=== PATIENT | female | born 1995 | race Caucasian/White ===

== ENCOUNTER 2021-07-24 22:53 | Emergency (ER) | payer OTHER ==
[~2021-07-24] VITALS: Ht 178 cm; Wt 91.0 kg
[2021-07-24] MEDS ORDERED: TETANUS,DIPTH,PERTUSS P/F (BOOSTRIX) 0.5 ML VIAL IM ONE (23:15)
[2021-07-24 23:36] LABS: BILIRUBIN,URINE NEGATIVE (NEGATIVE); CLARITY,URINE CLEAR; COLOR,URINE YELLOW; GLUCOSE, URINE (UA) NEGATIVE (NEGATIVE); KETONES,URINE NEGATIVE (NEGATIVE); LEUKOCYTE ESTERASE ,URINE TRACE (NEGATIVE); NITRITE,URINE NEGATIVE (NEGATIVE); PROTEIN,URINE NEGATIVE (NEGATIVE)
[2021-07-24 23:47] LABS: BACTERIA,URINE TRACE /HPF; RBC,URINE 0-2 /HPF; SQUAMOUS EPITHELIAL CELL,UR 0-2 /HPF; WBC,URINE 0-2 /HPF
[2021-07-24 23:54] LABS: BASOPHILS # (AUTO) 0.1 10^3/uL (0.0-0.1); BASOPHILS % (AUTO) 1 % (0-10); EOSINOPHILS # (AUTO) 0.1 10^3/uL (0.0-0.3); EOSINOPHILS % (AUTO) 2 % (0-10); HEMATOCRIT 39 % (35-52); HEMOGLOBIN 11.8 g/dL (11.5-16.0); LYMPHOCYTES % (AUTO) 30 % (12-44); MEAN CORPUSCULAR HEMOGLOBIN 25 pg (25-34); MEAN CORPUSCULAR HGB CONC 30 g/dL (32-36); MEAN CORPUSCULAR VOLUME 83 fL (80-99); MEAN PLATELET VOLUME 10.7 fL (9.0-12.2); MONOCYTES # (AUTO) 0.4 10^3/uL (0.0-1.0); MONOCYTES % (AUTO) 7 % (0-12); NEUTROPHILS # (AUTO) 4.1 10^3/uL (1.8-7.8); NEUTROPHILS % (AUTO) 61 % (42-75); PLATELET COUNT 246 10^3/uL (130-400); WHITE BLOOD COUNT 6.6 10^3/uL (4.3-11.0)
[2021-07-24 23:55] LABS: BENZODIAZEPINES SCREEN URINE NEGATIVE (NEGATIVE); COCAINE SCREEN URINE NEGATIVE (NEGATIVE)
[2021-07-24 23:56] LABS: AMPHETAMINE SCREEN, URINE POSITIVE (NEGATIVE); BARBITURATE SCREEN URINE NEGATIVE (NEGATIVE); CANNABINOID SCREEN, URINE POSITIVE (NEGATIVE); METHADONE STAT NEGATIVE (NEGATIVE); METHAMPHETAMINE SCREEN URINE S NEGATIVE (NEGATIVE); OPIATE SCREEN URINE NEGATIVE (NEGATIVE); OXYCODONE STAT NEGATIVE (NEGATIVE); PROPOXYPHENE STAT NEGATIVE (NEGATIVE); TRICYCLIC ANTIDEPRESSANTS SCRE NEGATIVE (NEGATIVE)
[2021-07-25 00:09] LABS: CHLORIDE 101 MMOL/L (98-107); SODIUM 137 MMOL/L (135-145)
[2021-07-25 00:10] LABS: ALBUMIN 4.6 GM/DL (3.2-4.5)
[2021-07-25 00:11] LABS: CALCIUM 9.2 MG/DL (8.5-10.1)
[2021-07-25 00:12] LABS: GLUCOSE 88 MG/DL (70-105); TOTAL PROTEIN 7.8 GM/DL (6.4-8.2)
[2021-07-25 00:13] LABS: CARBON DIOXIDE 20 MMOL/L (21-32)
[2021-07-25 00:14] LABS: BILIRUBIN,TOTAL 0.6 MG/DL (0.1-1.0)
[2021-07-25 00:16] LABS: ALKALINE PHOSPHATASE 100 U/L (40-136); CREATININE SERUM 0.87 MG/DL (0.60-1.30); GFR ESTIMATED 95
[2021-07-25 00:17] LABS: BUN/CREATININE RATIO 6
[2021-07-25 00:19] LABS: ALANINE AMINOTRANSFERASE 37 U/L (0-55); SALICYLATE < 5.0 MG/DL (5.0-20.0)
[2021-07-25 00:24] LABS: ACETAMINOPHEN < 10 UG/ML (10-30)
[2021-07-25] MEDS ORDERED: LIDOCAINE 1% INJ 20 ML VIAL INJ ONE (00:30)
[2021-07-25 00:39] LABS: TSH (THYROID ANALYZER) 0.88 UIU/ML (0.35-4.94)
--- NOTE | 2021-07-25 00:54 | ED Psychosocial ---
General Chief Complaint: Psych/Social Disorder Stated Complaint: LEFT ARM LAC Nursing Triage Note: PT AMB TO ED BY POV WITH C/O SELF-INFLICTED LAC TO L FA. 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 REPORTS SHE WAS ATTEMPTING TO HARM HERSELF. DENIES SI. REPORTS SHE HAS HAD INCREASED ANXIETY WITH September DUE TO HAVING A MISCARRIAGE LAST SEPTEMBER. APPROX 3 CM LAC NOTED TO L FA, BLEEDING CONTROLLED. Source: patient Exam Limitations: intoxication History of Present Illness Date Seen by Provider: Jul 24, 2021 Time Seen by Provider: 23:12 Initial Comments PT ARRIVES VIA POV FROM HOME--STATES HER BOYFRIEND BROUGHT HER C/O SELF INFLICTED LACERATION TO LEFT FOREARM--CUT IT WITH A STEAK KNIFE JUST PRIOR TO ARRIVAL STATES SHE "JUST THOUGHT ABOUT IT FOR ONE MINUTE BEFORE I DID IT" DENIES SUICIDAL INTENT STATES SHE HAS BEEN UPSET DUE TO THINKING ABOUT A MISCARRIAGE SHE HAD LAST SEPTEMBER 2020 AT 6 WEEKS GESTATION. DENIES HISTORY OF SELF HARM OR SUICIDAL IDEATIONS OR INPATIENT PSYCH ADMITS. HAS HISTORY OF DEPRESSION AND ANXIETY AND WAS SEEN AT [facility] LAST WEEK, AND STATES THEY LOWER HER DOSES OF LEXAPRO AND BUSPAR "BECAUSE I WASN'T TAKING THEM RIGHT" PT LATER ADMITS TO DRINKING 6-7 DRINKS TONIGHT. STATES SHE DRINKS DAILY SHE ALSO LATER ADMITS TO TAKING ADDERALL "SO I COULD CLEAN THE HOUSE" --MEDICATION IS NOT PRESCRIBED TO HER. PCP: [facility] Allergies and Home Medications Allergies Coded Allergies: No Known Drug Allergies (Unverified , 07/24/21) Patient Home Medication List Home Medication List Reviewed: Yes Review of Systems Constitutional: no symptoms reported EENTM: no symptoms reported Respiratory: no symptoms reported Cardiovascular: no symptoms reported Gastrointestinal: no symptoms reported Genitourinary: no symptoms reported Control/STD Prophylaxis: None Musculoskeletal: no symptoms reported Skin: see HPI Psychiatric/Neurological: See HPI Past Rulztup-Nfwaew-Ceyufn Hx Patient Social History Tobacco Use?: No Use of E-Cig and/or Vaping dev: No Substance use?: Yes Substance type: Amphetamines, Marijuana Additional substance use comme: "ADDERALL" --NOT PRESCRIBED TO HER Substance frequency: Daily Alcohol Use?: Yes Alcohol type: Beer Alcohol Frequency: Daily Immunizations Up To Date Influenza Vaccine Up-to-Date: No; Not Current First/Initial COVID19 Vaccinat: JUL 2020 Second COVID19 Vaccination Keaton: JUL 2020 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 oz. kg; 28.00 BMI Method: General Appearance: WD/WN, no apparent distress, other (REEKS OF ALCOHOL, SPEECH CLEAR, GAIT STEADY) HEENT: PERRL/EOMI, normal ENT inspection Neck: normal inspection Respiratory: normal breath sounds, no respiratory distress, no accessory muscle use Cardiovascular: regular rate, rhythm, no murmur Peripheral Pulses: 2+ Dorsalis Pedis (R), 2+ Left Dors-Pedis (L), 2+ Radial Pulses (R), 2+ Radial Pulses (L) Gastrointestinal: non tender, soft Extremities: normal range of motion, normal capillary refill, other (3 CM LACERATION TO ANTERIOR ASPECT OF LEFT FOREARM--NO BLEEDING. MOTOR/SENSORY/VASCULAR INTACT. ) Neurologic/Psychiatric: rural carrier associate II-XII nml as tested, no motor/sensory deficits, alert, oriented x 3, depressed affect Appearance/Memory: no memory impairment, disheveled Behavior/Eye Contact: cooperative, good eye contact, normal speech Thoughts/Hallucinations: no apparent hallucination Skin: normal color, warm/dry, other (LACERATION NOTED ABOVE.) Procedures/Interventions Other Wound Location LEFT FOREARM Wound Length (cm): 3 Wound's Depth, Shape: linear, sub Q Wound Explored: clean Betadine Prep?: No (BETASEPT) Anesthesia: 1% Lidocaine Staple Repair: Stapler 35W (#5) Sterile Dressing Applied?: Yes Progress/Results/Core Measures Results/Orders Lab Results My Orders Vital Signs/I&O Blood Pressure Mean: 106 Progress Progress Note : Progress Note PT CANNOT HAVE A MENTAL HEALTH SCREEN TONIGHT DUE TO ALCOHOL INTOXICATION. PT REPEATEDLY STATES SHE IS NOT SUICIDAL PT FEELS COMFORTABLE GOING HOME STATES SHE LIVES WITH HER BOYFRIEND AND DENIES ANY PROBLEMS WITH THE RELATIONSHIP. PT STATES SHE WILL FOLLOW UP WITH [facility] TOMORROW Initial ECG Impression Date: Jul 24, 2021 Initial ECG Impression Time: 23:34 Initial ECG Rate: 77 Initial ECG Rhythm: Normal Sinus Departure Impression Primary Impression: Intentional self-harm Additional Impressions: Laceration of left forearm Alcohol intoxication Illicit drug use Qvosaegvue-mwuqzlsyh-adxcgej (DPT) vaccination administered at current visit Disposition: 01 HOME, SELF-CARE Condition: Stable Departure-Patient Inst. Decision time for Depature: 01:07 Referrals: [facility] Patient Instructions: ALCOHOL AND SUBSTANCE ABUSE, Diphtheria and Tetanus Toxoids, and Acellular Pertussis Vaccine, Laceration Repair With [facility], SUICIDE CONTRACT, Self-Harm (DC) Add. Discharge Instructions: CLEAN WOUND TWICE A DAY WITH SOAP AND WATER ON A Q-TIP, APPLY FRESH DRESSING TWICE A DAY. OTHERWISE KEEP CLEAN AND DRY RETURN TO ER IN 10 DAYS FOR STAPLE REMOVAL NO ALCOHOL!! NO DRUGS!! FOLLOW UP WITH [facility] TOMORROW FOR FURTHER CARE RETURN TO ER IF SYMPTOMS WORSEN All discharge instructions reviewed with patient and/or family. Voiced understanding. WALDEMAR GRIDER DO Jul 25, 2021 00:54
[2021-07-25 01:20] VITALS: BP 121/65
== END 2021-07-25 01:20 | disposition home or self-care (01) ==
LOC: EDUNIT# 22:53 → ER 22:54
DX: R45.88 Nonsuicidal self-harm (principal); S51.812A Laceration without foreign body of left forearm, initial encounter; F41.9 Anxiety disorder, unspecified; F32.A Depression, unspecified; F10.129 Alcohol abuse with intoxication, unspecified; F15.90 Other stimulant use, unspecified, uncomplicated; Y90.7 Blood alcohol level of 200-239 mg/100 ml; Z23 Encounter for immunization; X78.1XXA Intentional self-harm by knife, initial encounter
CPT/HCPCS: 80053; 80306; 81000; 84443; 84703; 85025; 87636; 90471; 93005; 99283; G0480 ×3; 36415; 80320; 80329; 90715

== ENCOUNTER 2021-08-04 14:27 | Emergency (ER) | payer OTHER ==
[~2021-08-04] VITALS: Ht 180.3 cm; Wt 88.5 kg
[2021-08-04 15:04] VITALS: BP 125/75
== END 2021-08-04 15:09 | disposition home or self-care (01) ==
LOC: EDUNIT# 14:27 → ER 14:29
DX: Z48.02 Encounter for removal of sutures (principal)

== ENCOUNTER 2022-11-21 14:35 | Emergency (ER) | payer SELFPAY ==
[~2022-11-21] VITALS: Ht 180.3 cm; Wt 79.8 kg
[2022-11-21 14:45] VITALS: BP 148/84
--- NOTE | 2022-11-21 15:01 | ED Lower Extremity ---
General Chief Complaint: Lower Extremity Stated Complaint: LEFT KNEE PAIN Nursing Triage Note: pt ambulatory to room with a limp. states she woke up "a week and a half ago and could not walk." states he left knee is sore and hurts to straighten it. pt states she was seen at [facility] before here and they sent her here to be seen Source: patient Exam Limitations: no limitations History of Present Illness Date Seen by Provider: November 21, 2022 Time Seen by Provider: 14:52 Initial Comments 27-year-old female presents the ED with complaints of left knee pain for the last week and a half. She states that she first started having pain in her sleep. She states that she sleeps with three 50 pound dogs, states it is possible that they injured her while she was sleeping. Denies any other known injury. She reports difficulty with completely straightening her knee. Reports pain with straightening her knee and with walking. She reports that she was seen at the [facility] clinic, told to come here for concern of DVT. Past medical history includes depression and anxiety. Allergies and Home Medications Allergies Coded Allergies: No Known Drug Allergies (Unverified , 07/24/21) Patient Home Medication List Home Medication List Reviewed: Yes Review of Systems Constitutional: no symptoms reported Musculoskeletal: joint pain Past Kihtdra-Cdghkb-Heijta Hx Patient Social History Tobacco Use?: No Use of E-Cig and/or Vaping dev: Yes E-Cig or Vaping type used: Nicotine Use of E-Cig and/or Vaping Dixon: Current Everyday User Substance use?: Yes Substance type: Marijuana Substance frequency: Daily Alcohol Use?: No Immunizations Up To Date Influenza Vaccine Up-to-Date: Yes; Up-to-Date First/Initial COVID19 Vaccinat: JUL 2020 Second COVID19 Vaccination Keaton: JUL 2020 Past Medical History Surgery/Hospitalization HX: DEPRESSION Surgeries: No Respiratory: No Cardiac: No Neurological: No Reproductive Disorders: No Genitourinary: No Gastrointestinal: No Musculoskeletal: No Endocrine: No HEENT: No Cancer: No Psychosocial: Yes Anxiety, Depression Integumentary: No Blood Disorders: No Physical Exam Vital Signs Vital Signs - First Documented 11/21/22 14:45 Temp 36.4 Pulse 81 Resp 20 B/P (MAP) 148/84 (105) Pulse Ox 99 Capillary Refill : Height, Weight, BMI Height: '" Weight: lbs. oz. kg; 24.00 BMI Method:Actual General Appearance: WD/WN, no apparent distress Neck: supple, normal inspection Cardiovascular: regular rate, rhythm Respiratory: lungs clear, normal breath sounds, no respiratory distress, no accessory muscle use Knees: left knee non-tender, left knee normal inspection, left knee no evidence of injury, left knee pain, left knee other (Very slight decreased range of motion, can't quite get knee completely straight, no tenderness to palpation, no erythema, warmth, swelling) Neurologic/Psychiatric: alert, normal mood/affect Skin: normal color, warm/dry Progress/Results/Core Measures Results/Orders Lab Results Laboratory Tests Test 11/21/22 15:13 Range/Units White Blood Count 6.9 4.3-11.0 10^3/uL Red Blood Count 4.53 3.80-5.11 10^6/uL Hemoglobin 12.6 11.5-16.0 g/dL Hematocrit 39 35-52 % Mean Corpuscular Volume 86 80-99 fL Mean Corpuscular Hemoglobin 28 25-34 pg Mean Corpuscular Hemoglobin Concent 32 32-36 g/dL Red Cell Distribution Width 13.8 10.0-14.5 % Platelet Count 226 130-400 10^3/uL Mean Platelet Volume 11.8 9.0-12.2 fL Immature Granulocyte % (Auto) 0 % Neutrophils (%) (Auto) 76 H 42-75 % Lymphocytes (%) (Auto) 16 12-44 % Monocytes (%) (Auto) 6 0-12 % Eosinophils (%) (Auto) 1 0-10 % Basophils (%) (Auto) 1 0-10 % Neutrophils # (Auto) 5.2 1.8-7.8 10^3/uL Lymphocytes # (Auto) 1.1 1.0-4.0 10^3/uL Monocytes # (Auto) 0.4 0.0-1.0 10^3/uL Eosinophils # (Auto) 0.1 0.0-0.3 10^3/uL Basophils # (Auto) 0.0 0.0-0.1 10^3/uL Immature Granulocyte # (Auto) 0.0 0.0-0.1 10^3/uL Neutrophils % (Manual) 87 % Lymphocytes % (Manual) 11 % Monocytes % (Manual) 1 % Eosinophils % (Manual) 1 % Basophils % (Manual) 0 % Band Neutrophils 0 % Blood Morphology Comment NORMAL D-Dimer 0.28 0.00-0.49 UG/ML My Orders Orders - KRISTEN SORENSEN APRN Knee, Left, 3 Views (11/21/22 14:51) Fibrin Degradation Products (11/21/22 15:01) Cbc And Manual Diff (11/21/22 15:01) Anjel Bandage (11/21/22 16:09) Vital Signs/I&O 11/21/22 14:45 Temp 36.4 Pulse 81 Resp 20 B/P (MAP) 148/84 (105) Pulse Ox 99 Blood Pressure Mean: 105 Progress Progress Note : Progress Note Patient seen and evaluated, resting comfortably in recliner, no acute distress. Based on exam and symptoms, work-up initiated including x-ray, CBC, D-dimer. Wells score is 0, unlikely to be a blood clot, but will check D-dimer anyways. X-ray reviewed, negative for acute findings. D-dimer normal. CBC grossly normal. Results discussed with patient. Discussed ordering AN outpatient ultrasound. Patient states she would rather get it done at [facility], so she will follow-up Dr. Urbina to have an ultrasound completed. Discharge directions and return precautions provided. Diagnostic Imaging Diagonstic Imaging: Xray Plain Films/CT/US/NM/MRI: knee Comments [facility] [address], [facility] [place], [place] NAME: VENUS GRANT [facility] REC#: [id number] PT STATUS: REG ER : 1995 PHYSICIAN: KRISTEN SORENSEN APRN ADMIT DATE: 11/21/22/ER Signed Date of Exam:11/21/22 KNEE, LEFT, 3 VIEWS EXAMINATION: Left knee radiograph TECHNIQUE: AP, oblique, lateral views of the left knee obtained HISTORY: pain COMPARISON: None available. FINDINGS: No acute fracture or dislocation of the left knee. No joint effusion. No lytic or sclerotic bone lesion. No unexpected radiopaque foreign body. IMPRESSION: No acute fracture or dislocation. Dictated by: Dictated on workstation # [id number] Dict: 11/21/22 1510 Trans: 11/21/22 1511 [facility] [id number] Interpreted by: SAADIA LOPEZ DO Electronically signed by: SAAIDA LOPEZ DO 11/21/22 1511 Departure Impression Primary Impression: Knee pain Disposition: 01 HOME, SELF-CARE Condition: Stable Departure-Patient Inst. Decision time for Depature: 16:04 Referrals: SHREYA URBINA DO (PCP/Family) Primary Care Physician Patient Instructions: Knee Pain Add. Discharge Instructions: Rest your knee as much as possible. Use heat or ice whichever feels better. Wear the Anjel bandage for support. You may take 800 mg of ibuprofen every 8 hours with food as needed for pain. Follow-up with Dr. Urbina, call on her on Wednesday to schedule an appointment. Return for severe pain, inability to walk, redness, swelling, warmth around the knee, fever, or any other new, concerning, or worsening symptoms. All discharge instructions reviewed with patient and/or family. Voiced understanding. Work/School Note: Work Release Form Date Seen in the Emergency Department: November 21, 2022 Return to Work: November 28, 2022 Other Restrictions Listed Below: May work, but limited activity. Stay off leg as much as possible. KRISTEN SORENSEN APRN November 21, 2022 15:00
--- NOTE | 2022-11-21 15:12 | Diagnostic Imaging Report ---
EXAMINATION: Left knee radiograph TECHNIQUE: AP, oblique, lateral views of the left knee obtained HISTORY: pain COMPARISON: None available. FINDINGS: No acute fracture or dislocation of the left knee. No joint effusion. No lytic or sclerotic bone lesion. No unexpected radiopaque foreign body. IMPRESSION: No acute fracture or dislocation. Dictated by: Dictated on workstation # [id number]
[2022-11-21 15:28] LABS: BASOPHILS % (AUTO) 1 % (0-10); EOSINOPHILS # (AUTO) 0.1 10^3/uL (0.0-0.3); EOSINOPHILS % (AUTO) 1 % (0-10); HEMATOCRIT 39 % (35-52); HEMOGLOBIN 12.6 g/dL (11.5-16.0); LYMPHOCYTES # (AUTO) 1.1 10^3/uL (1.0-4.0); LYMPHOCYTES % (AUTO) 16 % (12-44); MEAN CORPUSCULAR HEMOGLOBIN 28 pg (25-34); MEAN CORPUSCULAR HGB CONC 32 g/dL (32-36); MEAN CORPUSCULAR VOLUME 86 fL (80-99); MEAN PLATELET VOLUME 11.8 fL (9.0-12.2); MONOCYTES # (AUTO) 0.4 10^3/uL (0.0-1.0); MONOCYTES % (AUTO) 6 % (0-12); NEUTROPHILS # (AUTO) 5.2 10^3/uL (1.8-7.8); NEUTROPHILS % (AUTO) 76 % (42-75); PLATELET COUNT 226 10^3/uL (130-400); WHITE BLOOD COUNT 6.9 10^3/uL (4.3-11.0)
[2022-11-21 15:57] LABS: BAND NEUTROPHILS 0 %; BASOPHILS % (MANUAL) 0 %; EOSINOPHILS % (MANUAL) 1 %; LYMPHOCYTES % (MANUAL) 11 %; MONOCYTES % (MANUAL) 1 %; NEUTROPHILS % (MANUAL) 87 %; RBC MORPH NORMAL
== END 2022-11-21 16:22 | disposition home or self-care (01) ==
LOC: EDUNIT# 14:35 → ER 14:37
DX: M25.562 Pain in left knee (principal); F17.290 Nicotine dependence, other tobacco product, uncomplicated
CPT/HCPCS: 36415; 73562; 85007; 85027; 85379